=== PATIENT | male | born 1950 | race Caucasian/White ===

== ENCOUNTER → 2020-05-13 | Outpatient (CLI) | payer OTHER, BC ==
[~2020-05-13] MED LIST: ACETAMINOPHEN325 M1 PO; ALLOPURINOL 30300 M2 PO; AMLODIPINE BESY10 MG PO; AMLODIPINE BESYL5 MG PO; ARICEPT10 M1 PO; ASPIRIN EC81 M1 PO; ASPIRIN325 PO; BYSTOLIC10 MG PO; CARBIDOPA-LEVO1 EAC9 PO; COLACE100 MG PO; DEPO-TESTO100 MG/1 M IM; EFFIENT10 MG PO; HYDROCODON-ACE1 EACH PO; IBUPROFEN 200200 M1 PO; LINZESS145 MCG PO; LIPITOR40 MG PO; LISINOPRIL-HCT1 EAC2 PO; LISINOPRIL20 MG PO; NEURONTIN100 MG PO; NITROGLYCERIN0.4 MG PO; NORCO 7.5-3251 EACH PO; PLAVIX 75 MG TA75 MG PO; PROSCAR 5MG TABL5 M1 PO; PROTONIX40 M2 PO; SERTRALINE HCL100 MG PO; SINGULAIR 10 MG10 M1 PO; TAMSULOSIN HCL0.4 MG PO; TOPROL XL50 MG PO; VIAGRA50 MG PO; VITAMIN D325 MC5 PO
== END ==
LOC: LAB 10:54
PROVIDERS: ATTEND Ophthalmology
DX: Z01.812 Encounter for preprocedural laboratory examination (principal); Z20.828 Contact with and (suspected) exposure to other viral communicable diseases

== ENCOUNTER → 2020-05-16 | Day surgery (SDC) | payer OTHER, BC ==
[~2020-05-16] VITALS: Ht 167.6 cm; Wt 124.7 kg
[2020-05-16 07:16] VITALS: BP 131/89
--- NOTE | 2020-05-20 06:17 | O ---
[facility] [place] [address] OPERATIVE REPORT Name: TRUDY HARVEY Room #: REG [facility]#: [id number] Admission: 05/16/20 Attend Phys: Ren Leon MD Discharge: Date of : 46 Report #: [id number] THIS REPORT FOR: cc: Colton Dwyer MD,Colton Leon,Ren Jesus MD ~ CC: Marah Leon DATE OF SERVICE: 05/16/2020 LITIGATION PARTNER: None. PREOPERATIVE DIAGNOSIS: Unilateral right upper lid ptosis. POSTOPERATIVE DIAGNOSIS: Unilateral right upper lid ptosis. OPERATION PERFORMED: Unilateral right upper lid ptosis repair. ANESTHESIA: Local anesthesia with IV sedation. COMPLICATIONS: None. INDICATIONS FOR SURGERY: This patient has right upper lid ptosis with superior visual field loss. Visual field testing demonstrates dense superior visual defects. Retesting with the upper lid elevated shows an improvement in visual field loss of over 30% and in excess of 12 degrees. The current procedure is undertaken in order to improve the patient's visual function. Informed consent was obtained to include but not limited to the potential risks for bleeding, scarring, infection, loss of vision, failure to improve the problem, need for further surgery and need for adjustment of lid height. DESCRIPTION OF PROCEDURE: The patient was taken to the operating room, where a right upper lid crease was drawn with a skin marking pen. The incision was then made with [place] scissors and dissected down to the orbital septum. Hemostasis was achieved with a monopolar cautery as it was throughout the case. The orbital septum was then entered and the preaponeurotic fat identified. The levator aponeurosis was then disinserted from the anterior surface of the tarsal plate and dissected free in the avascular Schneider's muscle plane. The aponeurosis was then advanced onto the anterior surface of the tarsal plate and reattached with mattress double-arm 6-0 Novafil sutures, adjusting for height and contour. The redundant aponeurosis was then amputated. The upper lid crease was then reformed with interrupted 6-0 chromic sutures. The skin was [address] [address] OPERATIVE REPORT Name: TRUDY HARVEY Room #: REG [facility].#: [id number] Admission: 05/16/20 Attend Phys: Ren Leon MD Discharge: Date of : 46 Report #: [id number] closed with interrupted 6-0 plain gut suture. The wound was then cleaned and dressed with ophthalmic antibiotic ointment. The patient was then transported to the recovery area, having tolerated the procedure well with no anesthesia or operative complications being noted. <ELECTRONICALLY SIGNED> By: Ren Leon MD 05/20/20 0617 [id number] Ren Leon MD /nt
== END | disposition home or self-care (01) ==
LOC: OR 06:15
PROVIDERS: ATTEND Ophthalmology
DX: H02.411 Mechanical ptosis of right eyelid (principal); I10 Essential (primary) hypertension; E78.00 Pure hypercholesterolemia, unspecified; E78.5 Hyperlipidemia, unspecified; G20 Parkinson's disease; F32.9 Major depressive disorder, single episode, unspecified; F41.9 Anxiety disorder, unspecified; G47.30 Sleep apnea, unspecified; Z98.890 Other specified postprocedural states; Z79.899 Other long term (current) drug therapy; Z86.73 Personal history of transient ischemic attack (TIA), and cerebral infarction without residual deficits
CPT/HCPCS: 50010; 50101; 50386; 50398; 51636; 56528; 56531; 62110; 62850; 70005